=== PATIENT | male | born 1970 ===

== ENCOUNTER 2022-03-12 06:36 | Day surgery (SDC) | payer OTHER ==
[~2022-03-12] VITALS: Ht 180.3 cm; Wt 115.7 kg
[2022-03-12] MEDS ORDERED: TYLENOL ARTHRI650 MG PO (09:56)
[2022-03-12] MEDS ORDERED: NEURONTIN300 MG PO (09:56)
[2022-03-12] MEDS ORDERED: ULTRAM50 MG PO (09:56)
[2022-03-12] MEDS ORDERED: KETO10TA2 PO (09:56)
[2022-03-12] MEDS ORDERED: MIRALAX17 GM PO (09:56)
== END 2022-03-12 14:45 | disposition home or self-care (01) ==
LOC: CIR.AMB 06:36
PROVIDERS: ATTEND Surgery
DX: K43.6 Other and unspecified ventral hernia with obstruction, without gangrene (principal); K42.9 Umbilical hernia without obstruction or gangrene; K76.0 Fatty (change of) liver, not elsewhere classified; Z86.16 Personal history of COVID-19; Z20.822 Contact with and (suspected) exposure to COVID-19